=== PATIENT | male | born 1975 | race Asian ===

== ENCOUNTER 2018-03-11 23:30 | Emergency (ER) | payer BC, OTHER ==
[~2018-03-11] VITALS: Ht 170.2 cm; Wt 78.1 kg
[2018-03-11 23:32] VITALS: BP 145/96
[2018-03-11] MEDS ORDERED: LIDOCAINE-MPF 1%, 5ML ONE (23:52)
[2018-03-11] MEDS ORDERED: DIPH,PERTUSS(ACELL),TET VAC/PF 0.5 ML IM-VACC ONE (23:52)
[2018-03-12] MEDS ORDERED: DIPH,PERTUSS(ACELL),TET VAC/PF 0.5 ML IM-VACC ONE (00:30)
[2018-03-12] MEDS ORDERED: LIDOCAINE-MPF 1%, 5ML INFIL ONE (00:30)
[2018-03-12] MEDS ORDERED: BACITRACIN ZINC OINT 500U/GM, 0.9 GM ONE (00:41)
== END 2018-03-12 01:12 | disposition home or self-care (01) ==
LOC: ED 23:58
DX: S61.216A Laceration without foreign body of right little finger without damage to nail, initial encounter (principal); S61.217A Laceration without foreign body of left little finger without damage to nail, initial encounter; X78.8XXA Intentional self-harm by other sharp object, initial encounter; Y93.39 Activity, other involving climbing, rappelling and jumping off; Y99.8 Other external cause status; Y92.89 Other specified places as the place of occurrence of the external cause
CPT/HCPCS: 12042; 90471; 90715; 99284; 99291

== ENCOUNTER 2018-05-07 13:37 | Emergency (ER) | payer OTHER ==
[~2018-05-07] VITALS: Ht 172.7 cm; Wt 76.8 kg
[2018-05-07 13:38] VITALS: BP 152/99
[2018-05-07] MEDS ORDERED: BACITRACIN ZINC OINT 500U/GM, 0.9 GM ONE (14:13)
== END 2018-05-07 14:29 | disposition home or self-care (01) ==
LOC: ED 14:28
DX: S61.512D Laceration without foreign body of left wrist, subsequent encounter (principal); S61.511D Laceration without foreign body of right wrist, subsequent encounter; I10 Essential (primary) hypertension; X58.XXXD Exposure to other specified factors, subsequent encounter
CPT/HCPCS: 99283